=== PATIENT | male | born 1960 | race Caucasian/White ===

== ENCOUNTER 2024-04-05 13:12 | Inpatient (IN) | payer MEDICARE, OTHER ==
[~2024-04-05] VITALS: Ht 180.3 cm; Wt 78.0 kg
--- NOTE | 2024-04-05 13:30 | ED.PDOC ---
History of Present Illness HPI Comments 64 y.o male presents to the ED via EMS for a chief complaint of flu like symptoms that include generalized weakness, body aches and chills that started around 03/25/24. Patient drove from [place] to [place] to visit family for the holidays, developed flu like symptoms on the way which have gotten progressively worse. Patient presents with strong presence of urine odor, denies any urinary symptoms. EMS reports patient was non ambulatory on scene and was carried onto the gurney. Patient is usually ambulatory but due to his weakness, he has been laying in bed since he arrived to his family house. Patient denies any nausea, vomiting, abdominal pain, chest pain SOB, fevers. Patient is afebrile, blood pressure of 136/72 and tachycardiac at 120. Time Seen by MD: 13:20 Reviewed Notes: Nurses Notes, Sales And Marketing Agent Notes, Medications, Allergies Information Source: Patient, Emergency Med Personnel Mode of Arrival: EMS Severity: Moderate Timing: Weeks Duration: Since onset Past Medical History Surgical History: CABG Surgical History (Other): facial reconstruction Family History Family History: Reviewed,noncontributory to illness, No family hx of Cancer, No family hx of DM, No family hx of Heart yaz, No family hx of HTN, No family hx ofKidney yaz, No family hx of Liver yaz, No family hx of Lung yaz, No family hx of Stroke Social History Smoker: Non-Smoker Alcohol: Denies ETOH Use Drugs: Denies Drug Use Lives In: Home Constitutional: reports: chills, weakness; denies: diaphoresis, fatigue, fever, malaise, sweats, others EENTM: denies: blurred vision, double vision, ear bleeding, ear discharge, ear drainage, ear pain, ear ringing, eye pain, eye redness, hearing loss, mouth pain, mouth swelling, nasal discharge, nose bleeding, nose congestion, nose pain, photophobia, tearing, throat pain, throat swelling, voice changes, others Respiratory: denies: cough, hemoptysis, orthopnea, SOB at rest, shortness of breath, SOB with excertion, stridor, wheezing, others Cardiovascular: denies: chest pain, dizzy spells, diaphoresis, Dyspnea on exertion, edema, irregular heart beat, left arm pain, lightheadedness, palpitations, PND, syncope, others Gastrointestinal: denies: abdomen distended, abdominal pain, blood streaked bowels, constipated, diarrhea, dysphagia, difficulty swallowing, hematemesis, melena, nausea, poor appetite, poor fluid intake, rectal bleeding, rectal pain, vomiting, others Genitourinary: denies: burning, dysuria, flank pain, frequency, hematuria, in continence, penile discharge, penile sore, pain, testicle pain, testicle swelling, urgency, others Neurological: denies: dizziness, fainting, headache, left sided numbness, left sided weakness, numbness, paresthesia, pre-existing deficit, right sided numbness, right sided weakness, seizure, speech problems, tingling, tremors, weakness, others Musculoskeletal: denies: back pain, gout, joint pain, joint swelling, muscle pain, muscle stiffness, neck pain, others Integumetry: denies: bruises, change in color, change in hair/nails, dryness, laceration, lesions, lumps, rash, wounds, others Allergic/Immunocompromised: denies: Difficulty Healing, Frequent Infections, Hives, Itching, others Hematologic/Lymphatic: denies: anemia, blood clots, easy bleeding, easy bruising, swollen glands, others Endocrine: denies: excessive hunger, excessive sweating, excessive thirst, excessive urination, flushing, intolerance to cold, intolerance to heat, unexplained weight gain, unexplained weight loss, others Psychiatric: denies: anxiety, bipolar disorder, depression, hopeless, panic disorder, schizophrenia, sleepless, suicidal, others All Other Systems: Reviewed and Negative Physical Exam General Appearance: Moderate Distress HEENT: Normal ENT Inspection, Pharynx Normal, TMs Normal Neck: Full Range of Motion, Non-Tender, Normal, Normal Inspection Respiratory: Chest Non-Tender, Lungs Clear, No Accessory Muscle Use, No Respiratory Distress, Normal Breath Sounds Cardiovascular: No Edema, No JVD, No Murmur, No Gallop, Normal Peripheral Pulses, Regular Rate/Rhythm Breast Exam: Deferred Gastrointestinal: No Organomegaly, Non Tender, No Pulsatile Mass, Normal Bowel Sounds, Soft Genitalia: Deferred Pelvic: Deferred Rectal: Deferred Extremities: No calf tenderness, Normal capillary refill, Normal inspection, Normal range of motion, Non-tender, No pedal edema Musculoskeletal : Apperance: Normal Neurologic: Alert, No Motor Deficits, No Sensory Deficits Cerebellar Function: NOT DONE Reflexes: NOT DONE Skin: Pallor Peripheral Pulses: 3+ Radial (R), 3+ Radial (L) Lymphatic: No Adenopathy Was a procedure done? Was a procedure done?: No Differential Dx Considerations may include: Dehydration, Electrolyte imbalance, Influenza, URI, Sepsis, UTI X-Ray, Labs, Meds, VS Lab Test 04/05/24 13:33 Range/Units White Blood Count 4.0 L 4.4-10.8 10^3/uL Red Blood Count 4.40 L 4.5-5.90 10^6/uL Hemoglobin 13.7 13.5-17.5 g/dL Hematocrit 40.4 L 41.0-53.0 % Mean Corpuscular Volume 91.8 80.0-100.0 fL Mean Corpuscular Hemoglobin 31.0 28.0-32.0 pg Mean Corpuscular Hemoglobin Concent 33.8 32.0-36.0 g/dL Red Cell Distribution Width 14.2 11.8-14.3 % Platelet Count 79 L 140-450 10^3/uL Mean Platelet Volume 9.6 6.9-10.8 fL Neutrophils (%) (Auto) 37.0-80.0 % Lymphocytes (%) (Auto) 10.0-50.0 % Monocytes (%) (Auto) 0.0-12.0 % Basophils (%) (Auto) 0.0-2.0 % Neutrophils # (Auto) 1.6-8.6 10 ^3/uL Lymphocytes # (Auto) 0.4-5.4 10 ^3/uL Monocytes # (Auto) 0-1.3 10 ^3/uL Differential Total Cells Counted 100.0 100 Neutrophils % (Manual) 84 H 37.0-80.0 Band Neutrophils % (Manual) 5 Lymphocytes % (Manual) 5 L 10.0-50.0 Monocytes % (Manual) 6 0-12 Eosinophils % (Manual) 0 0-7 Basophils % (Manual) 0 0.0-2.0 Metamyelocytes % (manual) 0 Myelocytes % (Manual) 0 Promyelocytes % (Manual) 0 Blast Cells % (Manual) 0 Reactive Lymphocytes 0 Platelet Estimate Decreased Large Platelets Few Sodium Level 138 136-145 mmol/L Potassium Level 4.8 3.5-5.1 mmol/L Chloride Level 104 98-107 mmol/L Carbon Dioxide Level 21 20-31 mmol/L Anion Gap 13 5-15 Blood Urea Nitrogen 61 H 9-23 mg/dL Creatinine 3.60 H 0.700-1.30 mg/dL Glomerular Filtration Rate Calc 18 >90 mL/min BUN/Creatinine Ratio 16.9 10.0-20.0 Serum Glucose 126 H 74-106 mg/dL Calcium Level 10.0 8.7-10.4 mg/dL Troponin I High Sensitivity 22 </=54 ng/L Patient alert. Generalized weakness. Has been sick for more than a week. Vitals stable. Tachycardia. Has not been ambulating. Denies shortness a breath. Chronic pain syndrome. He is on continuous pain medication. Establish intravenous access. Was given fluids. Reviewed his history. Explained to the patient. Time of 1ST Reevaluation: 13:25 Reevaluation 1ST: Unchanged Patient Education/Counseling: Diagnosis, Treatment, Prognosis Family Education/Counseling: No Family Present Additional Information I reviewed the following notes from patient's past medical encounters: None The following tests were ordered, and results were reviewed by me: KRISTOPHER, Nicola, LAB Additional Information was gathered from interviewing the following independent historians: Paramedics I reviewed and agreed with the following test results read by other providers: I discussed treatment and results with medical personnel Departure 1 Departure Time of Disposition: 13:32 Impression: Primary Impression: Generalized weakness Disposition: ADMITTED INPATIENT Admit to: Med Surg Condition: Guarded Critical Care Note Critical Care Time?: No Stability Stability form required: No I personally scribed for CATARINO GARCIA MD ([email or web address]) on 04/05/24 at 13:30. Electronically submitted by Rosa Turner ([facility]). CATARINO GARCIA MD Apr 05, 2024 13:30
[2024-04-05 14:05] LABS: Hematocrit 40.4 % (41.0-53.0); Hemoglobin 13.7 g/dL (13.5-17.5); Mean Corpuscular Hgb Conc. 33.8 g/dL (32.0-36.0); Mean Corpuscular Volume 91.8 fL (80.0-100.0); Platelet Count (auto) 79 10^3/uL (140-450); Red Cell Distribution Width 14.2 % (11.8-14.3)
[2024-04-05 14:08] LABS: Basophils % (manual) 0 (0.0-2.0); Blast Cells 0; Eosinophils % (manual) 0 (0-7); Metamyelocytes % 0; Myelocytes % 0; Promyelocytes % 0; Reactive Lymphocytes 0
[2024-04-05 14:09] LABS: Chloride 104 mmol/L (98-107); Potassium 4.8 mmol/L (3.5-5.1); Sodium 138 mmol/L (136-145)
[2024-04-05 14:10] LABS: Anion Gap 13 (5-15); Carbon Dioxide 21 mmol/L (20-31)
[2024-04-05 14:15] LABS: BUN/Creatinine Ratio 16.9 (10.0-20.0)
[2024-04-05 14:18] LABS: Blood Urea Nitrogen 61 mg/dL (9-23); Glucose 126 mg/dL (74-106)
[2024-04-05 14:29] LABS: Band Neutrophils % (manual) 5; Large Platelets FEW; Lymphocytes % (manual) 5 (10.0-50.0); Monocytes % (manual) 6 (0-12); Platelet Estimate Decreased
[2024-04-05] MEDS: NALOXONE HCL 1MG/ML 2ML SYRINGE IV ONE (16:22)
[2024-04-05] MEDS: cefTRIAXone 1GM/50ML D5W 50 ML IV ONE (16:23)
[2024-04-05] MEDS: SODIUM CHLORIDE 0.9% 1,000 ML IV ONE ×2 (16:24→20:24)
--- NOTE | 2024-04-05 16:59 | DVH ---
XY CHEST PORTABLE, HISTORY: SOB COMPARISON: None None TECHNICAL DATA: 1 view of the chest was obtained. FINDINGS: Lines and tubes: None Cardiomediastinal silhouette: normal Pulmonary vasculature: Prominent Lung expansion: low Lung airspace: normal Lung interstitium: prominent Pleura: normal Pneumothorax: no Bones: Unremarkable Other: no IMPRESSION: Pulmonary vascular congestion.
[2024-04-05 17:25] LABS: COVID19 ANTIGEN SOFIA FIA NEGATIVE (NEGATIVE); Rapid Influenza A Negative (Negative); Rapid Influenza B Negative (Negative)
[2024-04-05] MEDS: HYDROcodone-ACET 5/325MG TAB PO ONE (20:48)
[2024-04-05] MEDS ORDERED: DOCUSATE SOD 100 MG CAP PO PRN (21:30)
[2024-04-05] MEDS ORDERED: DEXTROSE (50%) 50ML SYRG IV PRN (21:30)
[2024-04-05] MEDS ORDERED: ACETAMINOPHEN 325 MG TAB PO PRN (21:30)
[2024-04-05 21:34] LABS: Urine Bacteria FEW /hpf (None Seen); Urine Blood 2+ /uL (Negative); Urine Clarity Clear (Clear); Urine Color Yellow (Yellow); Urine Hyaline Cast FEW /lpf (0 - 2); Urine Protein, UAD 1+ (Negative); Urine Specific Gravity 1.021 (1.001-1.035); Urine Squamous Epithelial Cell FEW /hpf (<5); Urine Urobilinogen Normal (Negative); Urine WBC 18 /hpf (0 - 3); Urine pH 5.5 (5.0-9.0)
[2024-04-05] MEDS: InsuLIN REG 1unit/0.01ml Soln (100units/ml) SC SCH (22:00)
[2024-04-05] MEDS: ACCU-CHEK COMFORT CURVE STRIP VI SCH (22:14)
[2024-04-05] MEDS: ATORVASTATIN 20 MG TAB PO SCH (22:23)
--- NOTE | 2024-04-05 22:56 | DVHHP2 ---
History of Present Illness Reason for Visit: Generalized weakness History of Present Illness The patient is a 64-year-old female with past medical history of diabetes mellitus, hypertension, and hyperlipidemia who presented to [facility] ED with complaint of generalized weakness. Patient reports symptoms progressively get worse with flu-like symptoms, getting worse that prompted this visit. Patient was seen and evaluated in the ED, laboratory data shows WBC 4.0, platelets 39053, sodium 138, potassium 4.8, BUN 61, creatinine 3.60, GFR 61, glucose 126, troponin 22, blood pressure 152/66, heart rate 108, temperature 98.8 F, O2 saturation 95% on room air. Chest x-ray revealing pulmonary vascular congestion. Please see medication orders section in the computer. On my assessment, patient denied chest pain, no headache, no dizziness, no shortness of breath, no abdominal pain, no diarrhea, no nausea, no vomiting, no fever, no chills. Patient was admitted for further evaluation and medical management. Past Medical History DM, hypertension, hyperlipidemia Past Surgical History CABG, Facial reconstruction Family History Reviewed, noncontributory to the management of this case. Past Social History The patient lives at home, denies smoking, alcohol or illicit drugs abuse. Review of Systems Constitutional: Yes: Weakness; No: Fever, Chills, Sweats, Malaise, Other Eyes: No: Pain, Vision change, Conjunctivae inflammation, Eyelid inflammation, Other, Redness ENT: No: Ear pain, Ear discharge, Nose pain, Nose discharge, Nose congestion, Mouth pain, Mouth swelling, Throat pain, Throat swelling, Other Respiratory: No: Cough, Dry, Shortness of breath, SOB with excertion, Wheezing, Hemoptysis, Pleuritic Pain, Sputum, Wheezing, Other Cardiovascular: No: Chest Pain, Palpitations, Orthopnea, Paroxysmal Noc. Dyspnea, Edema, Lt Headedness, Other Gastrointestinal: No: Nausea, Vomiting, Abdominal Pain, Diarrhea, Constipation, Melena, Hematochezia, Other Genitourinary: No Dysuria, No Frequency, No Incontinence, No Hematuria, No Retention, No Other Musculoskeletal: No: other, neck pain, shoulder pain, arm pain, back pain, hand pain, leg pain, foot pain Skin: No: Rash, Lesions, Jaundice, Bruising, Other Neurological: No: Weakness, Numbness, Incoordination, Change in speech, Confusion, Seizures, Other Allergies: Coded Allergies: NO KNOWN ALLERGIES (Unverified , 04/05/24) Medications Current Medications Medications Dose Ordered Sig/Gertrude Route Start Time Stop Time Status Last Admin Dose Admin Diagnostic Test (Pha) 1 strip ACHS 04/05/24 22:00 04/05/24 22:14 1 STRIP Insulin Human Regular ACHS SC 04/05/24 22:00 Dextrose 50 ml UD PRN IV 04/05/24 21:30 Acetaminophen/ Hydrocodone Bitart 1 tab Q4HP PRN PO 04/05/24 21:30 Ondansetron HCl 4 mg Q4HP PRN IV 04/05/24 21:30 Docusate Sodium 100 mg BIDPRN PRN PO 04/05/24 21:30 Acetaminophen 650 mg Q6HP PRN PO 04/05/24 21:30 Atorvastatin Calcium 10 mg HS PO 04/05/24 22:00 04/05/24 22:23 10 MG Aspirin 81 mg DAILY PO 04/06/24 10:00 Exam Vital Signs Vital Signs Date Time Temp Pulse Resp B/P (MAP) Pulse Ox O2 Delivery O2 Flow Rate FiO2 04/05/24 20:01 108 22 152/66 (94) 95 04/05/24 18:27 98.8 98.8 General Appearance: Alert, Oriented X3, Cooperative, No acute distress HEENT: Atraumatic, PERRLA, EOMI, Mucous membr. moist/pink Respiratory: Clear to auscultation, Normal air movement Cardiovascular: Regular rate, Normal S1, Normal S2, No murmurs Abdominal: Normal bowel sounds, Soft, No tenderness, No hepatospenomegaly, No masses Extremities: No clubbing, No cyanosis, No edema, Normal pulses, No tenderness/swelling Skin: No rashes, No breakdown, No significant lesion Neuro: Normal speech, Normal tone, Sensation intact, Cranial nerves 3-12 NL, Reflexes 2+, Other (Generalized weakness) Psych/Mental Status: Mental status NL, Mood NL Labs/Xrays Labs Test 04/05/24 20:20 04/05/24 16:33 04/05/24 13:33 Range/Units Urine Color Yellow Yellow Urine Clarity Clear Clear Urine pH 5.5 5.0-9.0 Urine Specific [place] 1.021 1.001-1.035 Urine Protein 1+ H Negative Urine Ketones Trace Negative Urine Blood 2+ H Negative /uL Urine Nitrite Negative Negative Urine Bilirubin Negative Negative Urine Urobilinogen Normal Negative mg/dL Urine Leukocyte Esterase 2+ Negative /uL Urine RBC 2 0 - 3 /hpf Urine WBC 18 0 - 3 /hpf Urine Squamous Epithelial Cells Few <5 /hpf Urine Bacteria Few H None Seen /hpf Urine Hyaline Casts Few 0 - 2 /lpf Urine Glucose Normal Normal mg/dL Influenza Type A Antigen Negative Negative Influenza Type B Antigen Negative Negative SARS-CoV-2 Antigen (Rapid) Negative NEGATIVE White Blood Count 4.0 L 4.4-10.8 10^3/uL Red Blood Count 4.40 L 4.5-5.90 10^6/uL Hemoglobin 13.7 13.5-17.5 g/dL Hematocrit 40.4 L 41.0-53.0 % Mean Corpuscular Volume 91.8 80.0-100.0 fL Mean Corpuscular Hemoglobin 31.0 28.0-32.0 pg Mean Corpuscular Hemoglobin Concent 33.8 32.0-36.0 g/dL Red Cell Distribution Width 14.2 11.8-14.3 % Platelet Count 79 L 140-450 10^3/uL Mean Platelet Volume 9.6 6.9-10.8 fL Neutrophils (%) (Auto) 37.0-80.0 % Lymphocytes (%) (Auto) 10.0-50.0 % Monocytes (%) (Auto) 0.0-12.0 % Basophils (%) (Auto) 0.0-2.0 % Neutrophils # (Auto) 1.6-8.6 10 ^3/uL Lymphocytes # (Auto) 0.4-5.4 10 ^3/uL Monocytes # (Auto) 0-1.3 10 ^3/uL Differential Total Cells Counted 100.0 100 Neutrophils % (Manual) 84 H 37.0-80.0 Band Neutrophils % (Manual) 5 Lymphocytes % (Manual) 5 L 10.0-50.0 Monocytes % (Manual) 6 0-12 Eosinophils % (Manual) 0 0-7 Basophils % (Manual) 0 0.0-2.0 Metamyelocytes % (manual) 0 Myelocytes % (Manual) 0 Promyelocytes % (Manual) 0 Blast Cells % (Manual) 0 Reactive Lymphocytes 0 Platelet Estimate Decreased Large Platelets Few Sodium Level 138 136-145 mmol/L Potassium Level 4.8 3.5-5.1 mmol/L Chloride Level 104 98-107 mmol/L Carbon Dioxide Level 21 20-31 mmol/L Anion Gap 13 5-15 Blood Urea Nitrogen 61 H 9-23 mg/dL Creatinine 3.60 H 0.700-1.30 mg/dL Glomerular Filtration Rate Calc 18 >90 mL/min BUN/Creatinine Ratio 16.9 10.0-20.0 Serum Glucose 126 H 74-106 mg/dL Calcium Level 10.0 8.7-10.4 mg/dL Troponin I High Sensitivity 22 </=54 ng/L PATIENT: NINI FLETCHER ACCT: [id number] UNIT: [id number] : 1960 LOC: ER ROOM / BED: / AGE / SEX: 64 / M ADM STATUS: REG ER SERVICE [id number] ORDERING PHYSICIAN: CATARINO GARCIA MD PROCEDURE(s): CXRP - CHEST PORTABLE REASON: SOB ORDER NUMBER(s): [id number], ACCESSION NUMBER(s): [id number] XY CHEST PORTABLE, HISTORY: SOB COMPARISON: None None TECHNICAL DATA: 1 view of the chest was obtained. FINDINGS: Lines and tubes: None Cardiomediastinal silhouette: normal Pulmonary vasculature: Prominent Lung expansion: low Lung airspace: normal Lung interstitium: prominent Pleura: normal Pneumothorax: no Bones: Unremarkable Other: no IMPRESSION: Pulmonary vascular congestion. Assessment/Plan Assessment/Plan Generalized weakness Thrombocytopenia Acute renal failure Pulmonary vascular congestion Plan 1. Admit to telemetry unit 2. Breathing treatment 3. Pain control management 4. IV antibiotic management 5. Management of fluids and electrolytes 6. Consultation for Nephrology 7. Diagnostic test chest x-ray 8. DVT prophylaxis-on aspirin 9. Repeat labs CBC, CMP in a.m. 10. Home medication reviewed and reconciled 11. Continue with current medical management 12. Treatment plan discussed with patient and RN. Patient verbalized understanding. Plan discussed with: Patient, Other (RN) My Orders Orders - ROSE RENEE DNP Procedure Category Date Status Time *Dr. Raymond Somers CONS 04/05/24 Transmitted -[place] 21:18 Consistent DIET 04/06/24 Transmitted Carb(Ccho)Diabetes Breakfast Glucose Blood PHA 04/05/24 In Process (Accu-Chek Comfort 22:00 Insulin R (Human) PHA 04/05/24 In Process (Insulin R) 22:00 Dextrose 50% Syringe PHA 04/05/24 In Process 21:30 Allergies CEDRIC 04/05/24 In Process 21:18 Code Status CODE 04/05/24 Transmitted 21:18 Renal DIET 04/06/24 Transmitted Standard(2gna,3gk,Lopho) Breakfast Oxygen Per Hour RT 04/05/24 Transmitted 21:18 Hydrocodone-Acet PHA 04/05/24 In Process 5/325mg Tab ([place] 21:30 Ondansetron Hcl PHA 04/05/24 In Process (Zofran) 21:30 Docusate Sodium PHA 04/05/24 In Process Capsule (Colace 21:30 Complete Blood Count LAB 04/06/24 Verified 04:00 Comprehensive LAB 04/06/24 Verified Metabolic Panel 04:00 Condition: Serious CEDRIC 04/05/24 In Process 21:18 Acetaminophen Tablet PHA 04/05/24 In Process (Tylenol Tablet) 21:30 Bedrest With Bathroom CEDRIC 04/05/24 In Process Privileg 21:18 Sequential CEDRIC 04/05/24 In Process Compression Device Atorvastatin (Lipitor) PHA 04/05/24 In Process 22:00 Aspirin Tablet PHA 04/06/24 In Process 10:00 Problem List: (1) Generalized weakness (2) Thrombocytopenia (3) Acute renal failure (4) Pulmonary vascular congestion Date of Service: Apr 05, 2024 Billing Provider: ROSE RENEE DNP Common Visit Codes: [id number] INP/OBS CARE (HIGH) ROSE RENEE DNP Apr 05, 2024 22:56
[2024-04-05] MEDS ORDERED: NITROGLYCERIN 0.4 MG SL TAB SL PRN (23:00)
[2024-04-06] MEDS: HYDROcodone-ACET 5/325MG TAB PO PRN (03:56)
[2024-04-06 08:44] LABS: Hematocrit 40.2 % (41.0-53.0); Mean Corpuscular Hemoglobin 30.7 pg (28.0-32.0); Mean Corpuscular Hgb Conc. 32.4 g/dL (32.0-36.0); Mean Corpuscular Volume 94.8 fL (80.0-100.0); Platelet Count (auto) 42 10^3/uL (140-450); Red Blood Cells 4.24 10^6/uL (4.5-5.90); Red Cell Distribution Width 14.7 % (11.8-14.3); White Blood Cell 9.3 10^3/uL (4.4-10.8)
[2024-04-06 08:46] LABS: Basophils % (manual) 0 (0.0-2.0); Blast Cells 0; Eosinophils % (manual) 0 (0-7); Metamyelocytes % 0; Myelocytes % 0; Promyelocytes % 0; Reactive Lymphocytes 0
[2024-04-06 09:01] LABS: Alanine Aminotransferase 14 U/L (7-40); Albumin 3.4 g/dL (3.2-4.8); Alkaline Phosphatase 64 U/L (46-116); Anion Gap 9 (5-15); Aspartate Aminotransferase 34 U/L (13-40); BUN/Creatinine Ratio 16.4 (10.0-20.0); Calcium 9.7 mg/dL (8.7-10.4); Glucose 106 mg/dL (74-106); Potassium 4.3 mmol/L (3.5-5.1)
[2024-04-06 09:02] LABS: Bilirubin, Total 0.4 mg/dL (0.2-1.0); Total Protein 6.2 g/dL (5.7-8.2)
[2024-04-06 09:04] LABS: Blood Urea Nitrogen 49 mg/dL (9-23); Carbon Dioxide 18 mmol/L (20-31); Chloride 108 mmol/L (98-107); Sodium 135 mmol/L (136-145)
[2024-04-06] MEDS: ASPirin 81 mg TAB PO SCH (09:40)
[2024-04-06] MEDS: cefTRIAXone 1GM/50ML D5W 50 ML IV SCH (09:51)
--- NOTE | 2024-04-06 10:46 | DVHINCON2 ---
Date of service: Apr 06, 2024 Reason for Consultation Acute kidney injury History of Present Illness 64-year-old male no known previous medical history [place] that he has had flu-like symptoms for last several days. He presents to the hospital complaining of weakness. He is noted to have a creatinine greater than 3.0 on admission. No baseline is known. Nephrology consulted due to elevated creatinine level. Allergies: Coded Allergies: NO KNOWN ALLERGIES (Unverified , 04/05/24) Current Medications Current Medications Medications (Trade) Dose Ordered Sig/Gertrude Route PRN Reason Start Time Stop Time Status Last Admin Diagnostic Test (Pha) (Accu-Chek Comfort Curve T) 1 strip ACHS 04/05/24 22:00 04/06/24 09:35 Insulin Human Regular (InsuLIN R) ACHS SC 04/05/24 22:00 Dextrose 50 ml UD PRN IV Blood Sugar LESS THAN 60 04/05/24 21:30 Acetaminophen/ Hydrocodone Bitart ([place] 5/325MG Tab) 1 tab Q4HP PRN PO MODERATE PAIN (4-6 PAIN SCALE) 04/05/24 21:30 04/06/24 08:57 Ondansetron HCl (Zofran) 4 mg Q4HP PRN IV NAUSEA / VOMITING 04/05/24 21:30 Docusate Sodium (Colace Capsule) 100 mg BIDPRN PRN PO FOR CONSTIPATION 04/05/24 21:30 Acetaminophen (Tylenol Tablet) 650 mg Q6HP PRN PO PAIN SCALE 1-3 OR TEMP>100.4 04/05/24 21:30 Atorvastatin Calcium (Lipitor) 10 mg HS PO 04/05/24 22:00 04/05/24 22:23 Aspirin 81 mg DAILY PO 04/06/24 10:00 Nitroglycerin (Ntrostat Sublingual) 0.4 mg Q5MINP PRN SL FOR CHEST PAIN 04/05/24 23:00 Morphine Sulfate 2 mg Q30M PRN IV FOR CHEST PAIN 04/05/24 23:00 Ceftriaxone Sodium 50 ml @ 100 mls/hr DAILY@09 IV 04/06/24 09:00 04/06/24 09:51 Review of Systems Weakness and chills cough shortness of breath H&P Exam Vital Signs/I&O Vital Sign Date Time Temp Pulse Resp B/P (MAP) Pulse Ox O2 Delivery O2 Flow Rate FiO2 04/06/24 09:55 94 16 100/54 (69) 93 04/05/24 18:27 98.8 98.8 Intake and Output 04/05/24 04/06/24 19:00 07:00 Intake Total 1050 ml Balance 1050 ml Intake IV Total 1050 ml Physical Exam Elderly male disheveled Not in overt distress No pitting edema Mild congestion Labs/Diagnostic Data Labs/Diagnostic Data Laboratory Tests Test 04/06/24 09:53 04/06/24 08:36 04/05/24 20:20 04/05/24 16:33 Range/Units White Blood Count 9.3 # 4.4-10.8 10^3/uL Red Blood Count 4.24 L 4.5-5.90 10^6/uL Hemoglobin 13.0 L 13.5-17.5 g/dL Hematocrit 40.2 L 41.0-53.0 % Mean Corpuscular Volume 94.8 80.0-100.0 fL Mean Corpuscular Hemoglobin 30.7 28.0-32.0 pg Mean Corpuscular Hemoglobin Concent 32.4 32.0-36.0 g/dL Red Cell Distribution Width 14.7 H 11.8-14.3 % Platelet Count 42 L 140-450 10^3/uL Mean Platelet Volume 9.2 6.9-10.8 fL Neutrophils (%) (Auto) 37.0-80.0 % Lymphocytes (%) (Auto) 10.0-50.0 % Monocytes (%) (Auto) 0.0-12.0 % Basophils (%) (Auto) 0.0-2.0 % Neutrophils # (Auto) 1.6-8.6 10 ^3/uL Lymphocytes # (Auto) 0.4-5.4 10 ^3/uL Monocytes # (Auto) 0-1.3 10 ^3/uL Sodium Level 135 L 136-145 mmol/L Potassium Level 4.3 3.5-5.1 mmol/L Chloride Level 108 H 98-107 mmol/L Carbon Dioxide Level 18 L 20-31 mmol/L Anion Gap 9 5-15 Blood Urea Nitrogen 49 #H 9-23 mg/dL Creatinine 2.99 H 0.700-1.30 mg/dL Glomerular Filtration Rate Calc 23 >90 mL/min BUN/Creatinine Ratio 16.4 10.0-20.0 Serum Glucose 106 74-106 mg/dL Calcium Level 9.7 8.7-10.4 mg/dL Total Bilirubin 0.4 0.2-1.0 mg/dL Aspartate Amino Transferase (AST) 34 13-40 U/L Alanine Aminotransferase (ALT) 14 7-40 U/L Alkaline Phosphatase 64 46-116 U/L Total Protein 6.2 5.7-8.2 g/dL Albumin 3.4 3.2-4.8 g/dL Urine Color Yellow Yellow Urine Clarity Clear Clear Urine pH 5.5 5.0-9.0 Urine Specific [place] 1.021 1.001-1.035 Urine Protein 1+ H Negative Urine Ketones Trace Negative Urine Blood 2+ H Negative /uL Urine Nitrite Negative Negative Urine Bilirubin Negative Negative Urine Urobilinogen Normal Negative mg/dL Urine Leukocyte Esterase 2+ Negative /uL Urine RBC 2 0 - 3 /hpf Urine WBC 18 0 - 3 /hpf Urine Squamous Epithelial Cells Few <5 /hpf Urine Bacteria Few H None Seen /hpf Urine Hyaline Casts Few 0 - 2 /lpf Urine Glucose Normal Normal mg/dL Influenza Type A Antigen Negative Negative Influenza Type B Antigen Negative Negative SARS-CoV-2 Antigen (Rapid) Negative NEGATIVE Test 04/05/24 13:33 Range/Units White Blood Count 4.0 L 4.4-10.8 10^3/uL Red Blood Count 4.40 L 4.5-5.90 10^6/uL Hemoglobin 13.7 13.5-17.5 g/dL Hematocrit 40.4 L 41.0-53.0 % Mean Corpuscular Volume 91.8 80.0-100.0 fL Mean Corpuscular Hemoglobin 31.0 28.0-32.0 pg Mean Corpuscular Hemoglobin Concent 33.8 32.0-36.0 g/dL Red Cell Distribution Width 14.2 11.8-14.3 % Platelet Count 79 L 140-450 10^3/uL Mean Platelet Volume 9.6 6.9-10.8 fL Neutrophils (%) (Auto) 37.0-80.0 % Lymphocytes (%) (Auto) 10.0-50.0 % Monocytes (%) (Auto) 0.0-12.0 % Basophils (%) (Auto) 0.0-2.0 % Neutrophils # (Auto) 1.6-8.6 10 ^3/uL Lymphocytes # (Auto) 0.4-5.4 10 ^3/uL Monocytes # (Auto) 0-1.3 10 ^3/uL Differential Total Cells Counted 100.0 100 Neutrophils % (Manual) 84 H 37.0-80.0 Band Neutrophils % (Manual) 5 Lymphocytes % (Manual) 5 L 10.0-50.0 Monocytes % (Manual) 6 0-12 Eosinophils % (Manual) 0 0-7 Basophils % (Manual) 0 0.0-2.0 Metamyelocytes % (manual) 0 Myelocytes % (Manual) 0 Promyelocytes % (Manual) 0 Blast Cells % (Manual) 0 Reactive Lymphocytes 0 Platelet Estimate Decreased Large Platelets Few Sodium Level 138 136-145 mmol/L Potassium Level 4.8 3.5-5.1 mmol/L Chloride Level 104 98-107 mmol/L Carbon Dioxide Level 21 20-31 mmol/L Anion Gap 13 5-15 Blood Urea Nitrogen 61 H 9-23 mg/dL Creatinine 3.60 H 0.700-1.30 mg/dL Glomerular Filtration Rate Calc 18 >90 mL/min BUN/Creatinine Ratio 16.9 10.0-20.0 Serum Glucose 126 H 74-106 mg/dL Calcium Level 10.0 8.7-10.4 mg/dL Troponin I High Sensitivity 22 </=54 ng/L Assessment Acute kidney injury hemodynamically mediated Suspect chronic kidney disease however baseline is unknown Viral infection suspect [place] pneumonia Rule out urinary tract infection Proteinuria Status post IV fluid hydration Agree with antibiotic therapy to treat potential community-acquired pneumonia Obtain urine drug screen Urinalysis Obtain ultrasound of the kidney for baseline evaluation Avoid contrast studies Avoid nonsteroidal anti-inflammatory drugs Plan discussed with: Patient KERON BROWN MD Apr 06, 2024 10:46
[2024-04-06 10:57] LABS: Band Neutrophils % (manual) 6; Lymphocytes % (manual) 9 (10.0-50.0); Monocytes % (manual) 7 (0-12); Platelet Estimate Decreased
--- NOTE | 2024-04-06 11:46 | DVH ---
US KIDNEY HISTORY: dylan COMPARISON: None TECHNIQUE: Transverse and longitudinal grayscale and color doppler images were obtained of the kidney s and bladder. FINDINGS: Right kidney: Size: 11.1 cm Cortical thickness: Normal Echogenicity: Normal Stones: None Masses: None Hydronephrosis: None Ureters: Not well visualized. Other: None Left kidney: Size: 11.7 cm Cortical thickness: Normal Echogenicity: Normal Stones: None Masses: None Hydronephrosis: None Ureters: Not well visualized. Other: None Bladder: Normal Other: None. IMPRESSION: Normal renal ultrasound.
--- NOTE | 2024-04-06 20:39 | DVH ---
Exam: CT CT AB PEL WO CON-NO ORAL OR IV History: abdominal pain Comparison Study: None available at time of dictation. TECHNIQUE: Multidetector CT of the abdomen was performed from lung bases to pubic symphysis. Imaging was performed without IV contrast. Axial, coronal and sagittal multiplanar reformats were obtained fr om the axial data set by the technologist. Radiation Dose Information: CT Dose: CTDI volume is 13.17 mGy. Dose-length product is 747.79 mGy*cm FINDINGS: Evaluation of solid organs is limited due to lack of intravenous contrast use. Findings: Lung Bases: Atelectasis in the posterior costophrenic angles bilaterally. Liver: The liver is normal in size. No focal lesions. Gallbladder and Biliary Tree: Gallstones in the posterior portion of the neck of the gallbladder ( se qiana 2 image 30 ) Spleen: Unremarkable Pancreas: The pancreas is grossly normal in appearance. Adrenal Glands: Unremarkable Kidneys: Punctate nonobstructing calculi bilaterally in the kidneys these may represent vascular calc ever. Bladder: Grossly unremarkable for degree of distention. Bowel: The stomach is grossly normal in appearance. Small bowel and colon are normal in caliber and d istribution. The appendix is visualized and appears normal. Ascites: Absent Lymphadenopathy: No mesenteric, retroperitoneal or periportal lymphadenopathy. Abdominal Wall and Mesentery: Unremarkable. Vasculature: The visualized abdominal aorta is normal in size and caliber. Evaluation of abdominal a nd pelvic vessels is limited due to lack of intravenous contrast. Pelvic Organs: Unremarkable Musculoskeletal: No aggressive focal bony lesions, acute fractures or dislocation. Soft tissues: Unremarkable IMPRESSION: 1. Cholelithiasis 2. No findings of bowel obstruction however there is a large stool burden throughout the colon. 3. Punctate nonobstructing renal calculi bilaterally these may be urinary or vascular calculi. Radiation optimization: All CT scans at this facility use at least one of these dose optimization kimberly hniques: automated exposure control mA and/or kV adjustment per patient size (includes targeted exam s where dose is matched to clinical indication) or iterative reconstruction. HS:Y
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
[2024-04-06] MEDS: AZITHROMYCIN 500MG/ 250ML 250 ML IV ONE (20:45)
[2024-04-07 00:59] VITALS: RESP 19; O2SAT 94
[2024-04-07 07:30] VITALS: PULSE 102; RESP 18; O2SAT 94
[2024-04-07 07:38] LABS: Anion Gap 10 (5-15); Potassium 3.9 mmol/L (3.5-5.1); Sodium 137 mmol/L (136-145)
[2024-04-07 07:39] LABS: Calcium 9.9 mg/dL (8.7-10.4)
[2024-04-07 07:44] LABS: BUN/Creatinine Ratio 26.3 (10.0-20.0)
[2024-04-07 07:48] LABS: Glucose 102 mg/dL (74-106)
[2024-04-07 07:49] LABS: Blood Urea Nitrogen 63 mg/dL (9-23); Carbon Dioxide 19 mmol/L (20-31); Chloride 108 mmol/L (98-107)
[2024-04-07 08:40] LABS: Basophils # (auto) 0 10 ^3/uL (0-0.2); Basophils % (auto) 0.3 % (0.0-2.0); Eosinophils # (auto) 0.2 10 ^3/uL (0-0.8); Eosinophils % (auto) 2.4 % (0.0-7.0); Hematocrit 37.7 % (41.0-53.0); Hemoglobin 12.9 g/dL (13.5-17.5); Lymphocytes # (auto) 0.4 10 ^3/uL (0.4-5.4); Mean Corpuscular Hemoglobin 31.1 pg (28.0-32.0); Mean Corpuscular Hgb Conc. 34.1 g/dL (32.0-36.0); Mean Corpuscular Volume 91.1 fL (80.0-100.0); Monocytes # (auto) 0.2 10 ^3/uL (0-1.3); Monocytes % (auto) 2.7 % (0.0-12.0); Neutrophils # (auto) 5.7 10 ^3/uL (1.6-8.6); Neutrophils % (auto) 88.6 % (37.0-80.0); Nucleated Red Blood Cells % 0.1 %; Platelet Count (auto) 43 10^3/uL (140-450); Red Blood Cells 4.14 10^6/uL (4.5-5.90); Red Cell Distribution Width 14.2 % (11.8-14.3); White Blood Cell 6.5 10^3/uL (4.4-10.8)
[2024-04-07] MEDS: LACTULOSE 20Gm/30ML SOLN PO ONE (09:30)
[2024-04-07] MEDS: AZITHROMYCIN 500MG/ 250ML 250 ML IV SCH (10:00)
[2024-04-07] MEDS: ONDANSETRON HCL 4 MG/2 ML VIAL IV PRN (10:30)
--- NOTE | 2024-04-07 10:45 | DVHSR ---
APPROVED REPORT EXAM: Two-dimensional and M-mode echocardiogram with Doppler and color Doppler. Blood Pressure: 129/76 mmHg INDICATION Chest Pain RISK FACTORS Height: 5'7", Weight: 165 DIMENSIONS LVDd5.8 (3.8-5.7cm)LA (2D)3.9 (1.9-4.0cm)Aortic Root (2.0-3.7cm) LVDs4.7 (2.5-4.0cm)LA (MM) (1.9-4.0cm)Aortic Cusp Exc (1.5-2.0cm) EF (%) 40.0 (55-70%)Rt. Atrium (1.9-4.0cm)Asc. Aorta cm Mitral Valve MitralMitral Stenosis E/A ratio0.02D MVAcm2 Other Information Quality : Technically LimitedRhythm : Technically limited study due to pt lying on right side, unable to turn. Pt requested exam be stoppe d due to pain. Conclusion The study is technically limited. Patient requested that the exam be stopped. The left ventricle is mildly dilated in size. Ejection fraction is estimated at 40%. There is akinesis of the inferoposterior wall. 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 The neck measures around 2.0 x 3.0 cm in diameter. No evidence of clear thrombus in the aneurysm. The right ventricle is of normal size and systolic function. Valves structure and function are not well assessed. No evidence of pericardial effusion. No prior study for comparison.
[2024-04-07] MEDS: MORPHINE SULFATE INJ 2 MG/ml SYRG IV PRN (15:08)
--- NOTE | 2024-04-07 16:10 | DVHPN2 ---
Progress Note Date Seen: Apr 07, 2024 Medical Necessity Reason Pt with a Central, PICC or Fol: No Subjective Patient reports: No new complaints, Other Review of Systems: Deferred Objective vital signs Vital Sign Date Time Temp Pulse Resp B/P (MAP) Pulse Ox O2 Delivery O2 Flow Rate FiO2 04/07/24 15:08 68 18 118/75 04/07/24 14:00 90 04/07/24 07:30 Nasal Cannula* 2 28 04/07/24 00:56 98.9 98.9 medications Current Medications Medications Dose Ordered Sig/Gertrude Route Start Time Stop Time Status Last Admin Dose Admin Diagnostic Test (Pha) 1 strip ACHS 04/05/24 22:00 04/07/24 11:58 1 STRIP Insulin Human Regular ACHS SC 04/05/24 22:00 Dextrose 50 ml UD PRN IV 04/05/24 21:30 Acetaminophen/ Hydrocodone Bitart 1 tab Q4HP PRN PO 04/05/24 21:30 04/06/24 20:06 1 TAB Ondansetron HCl 4 mg Q4HP PRN IV 04/05/24 21:30 04/07/24 10:30 4 MG Docusate Sodium 100 mg BIDPRN PRN PO 04/05/24 21:30 Acetaminophen 650 mg Q6HP PRN PO 04/05/24 21:30 Atorvastatin Calcium 10 mg HS PO 04/05/24 22:00 04/06/24 22:00 10 MG Aspirin 81 mg DAILY PO 04/06/24 10:00 Nitroglycerin 0.4 mg Q5MINP PRN SL 04/05/24 23:00 Morphine Sulfate 2 mg Q30M PRN IV 04/05/24 23:00 04/07/24 15:08 2 MG Ceftriaxone Sodium 50 ml @ 100 mls/hr DAILY@09 IV 04/06/24 09:00 04/07/24 09:00 100 MLS/HR Azithromycin 250 ml @ 125 mls/hr DAILY IV 04/07/24 10:00 04/07/24 10:00 125 MLS/HR Examination: NEURO:Abnormal laboratory and microbiology Laboratory Tests 04/07/24 06:50 Test 04/07/24 06:50 Range/Units Serum Glucose 102 74-106 mg/dL Problem List/Assessment/Plan Problem List/Assessment/Plan Acute kidney injury hemodynamically mediated Suspect chronic kidney disease however baseline is unknown Proteinuria recs Renal function slightly better since admission Normal kidney ultrasound We will follow closely Plan discussed with: Other GARRET CONNELL MD Apr 07, 2024 16:10
[2024-04-07 16:41] VITALS: BP 153/78; PULSE 103; RESP 20; TEMP 98.1; O2SAT 95
[2024-04-07 16:58] LABS: INR 0.99 (0.9-1.15); Prothrombin Time 10.5 sec (9.3-11.8)
[2024-04-07 17:00] VITALS: BP 153/78; PULSE 102; RESP 18; TEMP 98.1; O2SAT 95
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
--- NOTE | 2024-04-07 19:23 | DVHINCON2 ---
Date Seen: Apr 07, 2024 Referring Physician MD Darian Reason for Consultation Posterior wall aneurysm vs pseudoaneurysm History of Present Illness This is a 64-year-old man who presented to the emergency room via EMS with a chief complaint of flu-like symptoms. The patient is a very poor historian. Information mostly obtained from records and sister at bedside. It appears the patient developed progressive generalized weakness, myalgia, chills, and dysuria around Jass time which prompted his family to call 911. Upon EMS arrival the patient was found with extreme lethargy and nonambulatory. 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 The patient is unable to report any past medical history. He is visiting his family from [place]. Per sister, he had a recent admission to a hospital but unable to provide further information. There was no 12 lead electrocardiogram found on file. Significant medical history includes coronary artery disease status post CABG, mne-[id number] diabetes mellitus, dyslipidemia, and chronic pain syndrome. Past Medical History Past medical history obtained from records. Patient and sister unable to provide information. Past Surgical History CABG Facial reconstruction Family History Unable to obtain family history at this time. Social History Unable to obtain social history at this time. Allergies: Coded Allergies: NO KNOWN ALLERGIES (Unverified , 04/05/24) Home Meds Reported Medications Rosuvastatin Calcium (Rosuvastatin Calcium) 5 Mg Tab, 1 TAB PO DAILY 04/07/24 Hydrocodone-Acetaminophen (Hydrocodone/Acetaminophen 5-325 mg) 1 Tab Tab, 1 TAB PO Q8HPRN PRN for pain 04/07/24 Carisoprodol (Carisoprodol) 250 Mg Tab, 1 TAB PO QID PRN for muscle spasm 04/07/24 Home Meds Home medications reviewed. Current Medications Current Medications Medications (Trade) Dose Ordered Sig/Gertrude Route PRN Reason Start Time Stop Time Status Last Admin Azithromycin 250 ml @ 125 mls/hr DAILY IV 04/07/24 10:00 04/07/24 10:00 Review of Systems Constitutional: Generalized weakness, myalgia, chills Ears, Nose, & Throat: No symptom reported Eyes: No symptom reported Neurological: No symptoms reported Pulmonary/Respiratory: No symptom reported Cardiovascular: No symptom reported Gastrointestinal: No symptom reported Genitourinary: No symptom reported Musculoskeletal: No symptom reported Skin: No symptom reported Psychiatric: No symptom reported Endocrine: No symptom reported Hemotologic/Lymphatic: No symptom reported Vital Signs Vital Signs Date Time Temp Pulse Resp B/P (MAP) Pulse Ox O2 Delivery O2 Flow Rate FiO2 04/07/24 17:00 98.1 102 18 153/78 (103) 95 98.1 04/07/24 16:41 Nasal Cannula* 2 28 Physical Exam General Appearance: Chronically ill. Somewhat disheveled. In no acute distress Head Exam: Normal inspection Neck Exam: Normal inspection. Non-tender. Normal alignment Pulmonary/Respiratory: Chest non-tender. Crackles to bilateral breath sounds Cardiovascular/Chest: Regular rate and rhythm. S1, S2. NSR. No murmurs. No JVD. Peripheral Pulses: 2+ Radial (R). 2+ Radial (L). 2+ Pedal (R). 2+ Pedal (L) Abdominal Exam: Normal bowel sounds. Soft. Nontender. No hepatospenomegaly. No masses Ankle Exam: Negative ankle edema Lower extremities: Negative lower extremity edema Neuro/Mental Status: A&O x2. Very poor historian Thoughts/Psych: Normal thought pattern. Passive Appearance: In no acute distress Skin Exam: Normal inspection. Pale color. Warm. Dry Labs/Diagnostic Data Labs Test 04/07/24 15:48 04/07/24 06:50 04/06/24 09:53 04/06/24 08:36 Range/Units Prothrombin Time 10.5 9.3-11.8 sec Prothrombin Time INR 0.99 0.9-1.15 White Blood Count 6.5 # 4.4-10.8 10^3/uL Red Blood Count 4.14 L 4.5-5.90 10^6/uL Hemoglobin 12.9 L 13.5-17.5 g/dL Hematocrit 37.7 L 41.0-53.0 % Mean Corpuscular Volume 91.1 80.0-100.0 fL Mean Corpuscular Hemoglobin 31.1 28.0-32.0 pg Mean Corpuscular Hemoglobin Concent 34.1 32.0-36.0 g/dL Red Cell Distribution Width 14.2 11.8-14.3 % Platelet Count 43 L 140-450 10^3/uL Mean Platelet Volume 10.5 6.9-10.8 fL Neutrophils (%) (Auto) 88.6 H 37.0-80.0 % Lymphocytes (%) (Auto) 6.0 L 10.0-50.0 % Monocytes (%) (Auto) 2.7 0.0-12.0 % Eosinophils (%) (Auto) 2.4 0.0-7.0 % Basophils (%) (Auto) 0.3 0.0-2.0 % Neutrophils # (Auto) 5.7 1.6-8.6 10 ^3/uL Lymphocytes # (Auto) 0.4 0.4-5.4 10 ^3/uL Monocytes # (Auto) 0.2 0-1.3 10 ^3/uL Eosinophils # (Auto) 0.2 0-0.8 10 ^3/uL Basophils # (Auto) 0 0-0.2 10 ^3/uL Nucleated Red Blood Cells 0.1 % Sodium Level 137 136-145 mmol/L Potassium Level 3.9 3.5-5.1 mmol/L Chloride Level 108 H 98-107 mmol/L Carbon Dioxide Level 19 L 20-31 mmol/L Anion Gap 10 5-15 Blood Urea Nitrogen 63 #H 9-23 mg/dL Creatinine 2.40 H 0.700-1.30 mg/dL Glomerular Filtration Rate Calc 30 >90 mL/min BUN/Creatinine Ratio 26.3 H 10.0-20.0 Serum Glucose 102 74-106 mg/dL Hemoglobin A1c 7.0 H <5.7 % A1C Calcium Level 9.9 8.7-10.4 mg/dL D-Dimer, Quantitative 10.48 H 0.0-0.49 mg/L FEU B-Type Natriuretic Peptide 1260.36 0-100 pg/mL Vitamin D 25-Hydroxy 5.8 L 30.0-100 ng/mL Differential Total Cells Counted 100.0 100 Neutrophils % (Manual) 78 37.0-80.0 Band Neutrophils % (Manual) 6 Lymphocytes % (Manual) 9 L 10.0-50.0 Monocytes % (Manual) 7 0-12 Eosinophils % (Manual) 0 0-7 Basophils % (Manual) 0 0.0-2.0 Metamyelocytes % (manual) 0 Myelocytes % (Manual) 0 Promyelocytes % (Manual) 0 Blast Cells % (Manual) 0 Reactive Lymphocytes 0 Platelet Estimate Decreased Total Bilirubin 0.4 0.2-1.0 mg/dL Aspartate Amino Transferase (AST) 34 13-40 U/L Alanine Aminotransferase (ALT) 14 7-40 U/L Alkaline Phosphatase 64 46-116 U/L Creatine Kinase 284 H 46-171 U/L Total Protein 6.2 5.7-8.2 g/dL Albumin 3.4 3.2-4.8 g/dL Test 04/05/24 20:20 04/05/24 16:33 04/05/24 13:33 Range/Units Urine Color Yellow Yellow Urine Clarity Clear Clear Urine pH 5.5 5.0-9.0 Urine Specific [place] 1.021 1.001-1.035 Urine Protein 1+ H Negative Urine Ketones Trace Negative Urine Blood 2+ H Negative /uL Urine Nitrite Negative Negative Urine Bilirubin Negative Negative Urine Urobilinogen Normal Negative mg/dL Urine Leukocyte Esterase 2+ Negative /uL Urine RBC 2 0 - 3 /hpf Urine WBC 18 0 - 3 /hpf Urine Squamous Epithelial Cells Few <5 /hpf Urine Bacteria Few H None Seen /hpf Urine Hyaline Casts Few 0 - 2 /lpf Urine Glucose Normal Normal mg/dL Influenza Type A Antigen Negative Negative Influenza Type B Antigen Negative Negative SARS-CoV-2 Antigen (Rapid) Negative NEGATIVE Large Platelets Few Troponin I High Sensitivity 22 </=54 ng/L Assessment 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 Rodriguez) The patient with complaints of generalized weakness and flu-like symptoms underwent a transthoracic echocardiogram revealing an LVEF of 40% with akinesis of the inferoposterior wall as well as found with the base to mid part of the inferior posterior wall aneurysms pseudoaneurysm with neck measuring 2.0 x 3.0 cm in diameter and no evidence of clear thrombus. Unable to obtain information from patient and sister in regards of cardiac history including previous findings of aneurysms. We strongly recommend to obtain records from previous facilities and primary proposal manager writer to further delineate plan of care. Primary care team has been notified. In the meantime, discontinue single-antiplatelet therapy given severe thrombocytopenia and continue lipid-lowering agent. Initiate preload and afterload reduction including strict I&Os. Continue GDMT for CHF as renal function permits. Obtain lower extremity DVT and VQ Scan. Con nazia nephrology recommendations. Thank you for allowing us to participate in this patient's care. Please call if you have any questions or concerns. Critical care time: 40 min. This medical document was created using an electronic medical record system with voice recognition software and computerized dictation system. Although this document has been carefully revi ewed, there might still be some phonetic and typographical errors. Occasional wrong-word or ``sound-alike substitutions may have occurred due to the inherent limitations of voice recognition software. These areas are purely typographical due to imperfections of the software programs and do not reflect any compromise in the patient's medical care. Please read the chart carefully and recognize, using context, where these substitutions have occurred. Plan discussed with: Patient, Other (Sister, primary team) NYHA Physical activity limitations: Class3(Marked) ordinary (activity causes symtoms) Date of Service: Apr 07, 2024 Billing Provider: DARON RODRIGUEZ MD Cardiology Common Codes: [id number] CARE 30-74 MIN JENIFER ENGLE CONVEYOR INSTALLER Apr 07, 2024 19:23
--- NOTE | 2024-04-07 19:45 | DVH ---
Procedure: NM NM HIDA SCAN Exam Date: 04/07/2024 02:30 PM Clinical History: rule out acute cholecystitis Comparison Study: CT scan dated 04/06/2024 Technique: Following the intravenous administration of 4.2 mCi of technetium 99m labeled Choletec mul tiple planar abdominal planar images were obtained in anterior projection in 1 minute intervals for 3 0 minutes . Right lateral an AP images 4 hour delay images were also obtained. Findings: The liver appears grossly normal in size. There is no abnormal persistence of the cardiac or blood po ol activity. Radiotracer was seen within the 1st 15 minutes of the study. Gallbladder was not seen in the 1st 30 minutes of imaging. 4 hour delay shows activity in gallbladder. Impression: 1. No evidence of cystic duct or CBD obstruction.
[2024-04-07 20:00] VITALS: PULSE 103
--- NOTE | 2024-04-07 20:04 | DVH ---
Bilateral lower extremity venous duplex Clinical History: Elevated d-dimer r/o DVT Comparison: None Technique: Duplex Doppler evaluation of the deep venous systems of both lower extremities from the common femora l veins to the popliteal veins including color Doppler and spectral/pulsed waveform analysis was perf ormed. Findings: RIGHT SIDE: The common femoral vein demonstrates appropriate compressibility and waveform variability . There is compressibility/patency of the great saphenous vein at the proximal thigh . The femoral vein demonstrates appropriate compressibility and waveform variability . The deep femoral vein demonstrates appropriate compressibility and waveform variability . The popliteal vein demonstrates appropriate compressibility and waveform variability . There is normal compressibility at the tibioperoneal trunk. LEFT SIDE: The common femoral vein demonstrates appropriate compressibility and waveform variability . There is compressibility/patency of the great saphenous vein at the proximal thigh . The femoral vein demonstrates appropriate compressibility and waveform variability . The deep femoral vein demonstrates appropriate compressibility and waveform variability . The popliteal vein demonstrates appropriate compressibility and waveform variability . There is normal compressibility at the tibioperoneal trunk. Impression: 1. No right or left femoropopliteal venous thrombosis. HS:Y
[2024-04-07 21:00] VITALS: BP 156/82; PULSE 103; RESP 20; TEMP 97.6; O2SAT 96
[2024-04-07] MEDS: ATORVASTATIN 20 MG TAB PO SCH (21:02)
[2024-04-07] MEDS: CARVEDILOL 3.125 MG TAB PO SCH (21:02)
[2024-04-07] MEDS: FUROSEMIDE 20 MG/2 ML VIAL IV ONE (21:03)
[2024-04-07] MEDS ORDERED: [UNRECOGNIZED DRUG - CODE] PO (22:11)
[2024-04-07] MEDS ORDERED: HYDR1TAB97 PO (22:11)
[2024-04-07] MEDS ORDERED: ROSU5TAB24 PO (22:11)
[2024-04-07 23:31] LABS: Opiate Scree,Urine Neg (NEGATIVE)
[2024-04-07 23:34] LABS: Protein, Urine 105.6 mg/dL (1-14)
[2024-04-07 23:36] LABS: Creatinine, Urine 50.58 mg/dL (30.0-125.0); Urine Protein/Creatinine Ratio 2.09
[2024-04-07 23:43] LABS: Amphetamine Screen, Urine Neg (NEGATIVE); Barbiturate Scree,Urine Neg (NEGATIVE); Benzodiazephine Screen, Urine Neg (NEGATIVE); Cannabinoid Screen, Urine Neg (NEGATIVE); Cocaine Screen, Urine Neg (NEGATIVE); Phencyclidine Screen, Urine Neg (NEGATIVE)
[2024-04-08] VITALS (8 sets, daily range): BP systolic 101–133; BP diastolic 56–78; PULSE 75–90; RESP 17–20; TEMP 96.1–98.7; O2SAT 95–100
[2024-04-08] MEDS: FUROSEMIDE 20 MG/2 ML VIAL IV SCH (05:36)
[2024-04-08 10:04] LABS: Hemoglobin 13.3 g/dL (13.5-17.5)
[2024-04-08 10:06] LABS: Hematocrit 38.8 % (41.0-53.0); Mean Corpuscular Hgb Conc. 34.2 g/dL (32.0-36.0); Mean Corpuscular Volume 90.7 fL (80.0-100.0); Platelet Count (auto) 40 10^3/uL (140-450); Red Blood Cells 4.28 10^6/uL (4.5-5.90); Red Cell Distribution Width 14.6 % (11.8-14.3); White Blood Cell 4.9 10^3/uL (4.4-10.8)
[2024-04-08 10:12] LABS: Band Neutrophils % (manual) 0; Basophils % (manual) 0 (0.0-2.0); Blast Cells 0; Eosinophils % (manual) 0 (0-7); Metamyelocytes % 0; Myelocytes % 0; Promyelocytes % 0; Reactive Lymphocytes 0
[2024-04-08 10:16] LABS: Potassium 4.1 mmol/L (3.5-5.1); Sodium 139 mmol/L (136-145)
[2024-04-08 10:17] LABS: Anion Gap 10 (5-15); Calcium 9.6 mg/dL (8.7-10.4); Carbon Dioxide 21 mmol/L (20-31)
[2024-04-08 10:22] LABS: BUN/Creatinine Ratio 36.2 (10.0-20.0)
[2024-04-08 10:26] LABS: Blood Urea Nitrogen 77 mg/dL (9-23); Chloride 108 mmol/L (98-107); Glucose 135 mg/dL (74-106)
--- NOTE | 2024-04-08 10:30 | DVHPN2 ---
Consult Progress Note Date Seen: Apr 08, 2024 Subjective Review of Systems: CVS:Normal, RESPIRATORY:Normal, GI:Abnormal, NEURO:Normal Other Systems: Appears more alert today. C/o abd pain Objective vital signs Vital Sign Date Time Temp Pulse Resp B/P (MAP) Pulse Ox O2 Delivery O2 Flow Rate FiO2 04/08/24 09:58 88 118/68 04/08/24 05:00 97.6 18 96 97.6 04/07/24 20:00 Nasal Cannula* 3 32 Total Intake and Output 04/07/24 04/07/24 04/08/24 15:00 23:00 07:00 Intake Total 780 ml 340 ml 240 ml Output Total 0 ml 0 ml 550 ml Balance 780 ml 340 ml -310 ml medications Current Medications Medications Dose Ordered Sig/Gertrude Route Start Time Stop Time Status Last Admin Dose Admin Diagnostic Test (Pha) 1 strip ACHS 04/05/24 22:00 04/08/24 06:06 1 STRIP Insulin Human Regular ACHS SC 04/05/24 22:00 Dextrose 50 ml UD PRN IV 04/05/24 21:30 Acetaminophen/ Hydrocodone Bitart 1 tab Q4HP PRN PO 04/05/24 21:30 04/08/24 05:56 1 TAB Ondansetron HCl 4 mg Q4HP PRN IV 04/05/24 21:30 04/07/24 10:30 4 MG Docusate Sodium 100 mg BIDPRN PRN PO 04/05/24 21:30 Acetaminophen 650 mg Q6HP PRN PO 04/05/24 21:30 Nitroglycerin 0.4 mg Q5MINP PRN SL 04/05/24 23:00 Morphine Sulfate 2 mg Q30M PRN IV 04/05/24 23:00 04/07/24 15:08 2 MG Ceftriaxone Sodium 50 ml @ 100 mls/hr DAILY@09 IV 04/06/24 09:00 04/08/24 09:00 100 MLS/HR Azithromycin 250 ml @ 125 mls/hr DAILY IV 04/07/24 10:00 04/08/24 09:58 125 MLS/HR Atorvastatin Calcium 40 mg HS PO 04/07/24 22:00 04/07/24 21:02 40 MG Carvedilol 6.25 mg Q12HR PO 04/07/24 22:00 04/08/24 09:00 6.25 MG Furosemide 20 mg BIDD IV 04/08/24 06:00 04/08/24 05:36 20 MG Ergocalciferol 50,000 unit Q7D PO 04/08/24 09:15 Pantoprazole Sodium 40 mg DAILY IV 04/09/24 10:00 UNV Examination: GENERAL:Abnormal (Chronically ill), LUNGS:Abnormal (Diminished), CVS:Normal (NSR), NEURO:Abnormal (Right facial droop/right-sided hemiparesis) laboratory and microbiology Laboratory Tests 04/08/24 09:30 Test 04/08/24 09:30 Range/Units Serum Glucose Pending Problem List/Assessment/Plan Problem List/Assessment/Plan 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 Martin) The patient with complaints of generalized weakness and flu-like symptoms underwent a transthoracic echocardiogram revealing an LVEF of 40% with akinesis of the inferoposterior wall as well as found with the base to mid part of the inferior posterior wall aneurysms pseudoaneurysm with neck measuring 2.0 x 3.0 cm in diameter and no evidence of clear thrombus. Per patient, he had a recent admission to an unknown hospital with a length stay of 6-7 days and diagnosed with an PA. Denies any invasive procedures at that time. Unable to obtain information in regards of previous findings of aneurysms. We strongly recommend to obtain records from previous facilities and primary conventions assistant to further delineate plan of care. Off antiplatelet therapy given severe thrombocytopenia. Continue lipid-lowering agent as well as preload and afterload reduction including strict I&Os. Continue GDMT for CHF as renal function permits. Obtain STAT head CT and VQ Scan. Continue nephrology recommendations. Thank you for allowing us to participate in this patient's care. Please call if you have any questions or concerns. This medical document was created using an electronic medical record system with voice recognition software and computerized dictation system. Although this document has been carefully reviewed, there might still be some phonetic and typographical errors. Occasional wrong-word or ``sound-alike substitutions may have occurred due to the inherent limitations of voice recognition software. These areas are purely typographical due to imperfections of the software programs and do not reflect any compromise in the patient's medical care. Please read the chart carefully and recognize, using context, where these substitutions have occurred. Plan discussed with: Patient, Other Date of Service: Apr 08, 2024 Billing Provider: MAME MARTIN Sr., MD Cardiology Common Codes: [id number] HOSP CARE(High ENGLEXAVIERY [facility] Apr 08, 2024 10:30
[2024-04-08 10:33] LABS: Magnesium 2.3 mg/dL (1.6-2.6)
--- NOTE | 2024-04-08 11:01 | DVH ---
EXAM: CT HEAD WITHOUT CONTRAST INDICATION: Right facial droop TECHNIQUE: CT of the head without intravenous contrast. Radiation dose : Head: CT Dose: CTDI volume is 57 mGy. Dose-length product is 1029 mGy*cm The dose indicators for CT are the volume computed tomography (CT) dose index (CTDIvol) and the dose length product (DLP), and are measured in units of mGy and mGy-cm, respectively. These indicators are not patient dose, but values generated from the CT scanner acquisition factors. The report includes radiation exposure data for exposures received during this examination. COMPARISON: None FINDINGS: There is no evidence of acute intracranial hemorrhage, extra-axial collection, mass effect, midline s hift, herniation or hydrocephalus. Mild cerebral atrophy. Focal hypodensity in the region of the head of the left caudate and in the left basal ganglia extendi ng into the left temporal lobe. Mild calcifications in the left santos radiata. The visualized paranasal sinuses and mastoid air cells are clear. Mildly displaced fractures of the anterior wall of the right maxillary sinus. Chronic appearing fract ure deformity of the right zygomatic arch. IMPRESSION: 1. No acute intracranial abnormality. 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 C alcification in the left santos radiata is nonspecific. Consider further evaluation with MRI of the b rain with contrast. Mild cerebral atrophy. 2. Fracture deformity of the anterior wall of the right maxillary sinus and right zygomatic arch. Con thoroughbred horse farm manager further evaluation with CT of the facial bones. Radiation optimization: All CT scans at this facility use at least one of these dose optimization kimberly hniques: Automated exposure control mA and/or kV adjustment per patient size (includes targeted exams where dose is matched to clinical indication) or iterative reconstruction. HS:Y
[2024-04-08 12:01] LABS: Lymphocytes % (manual) 11 (10.0-50.0); Monocytes % (manual) 4 (0-12); Platelet Estimate Decreased
[2024-04-08] MEDS: SUCRALFATE 1 GM TAB PO ONE (12:02)
[2024-04-08] MEDS: PANTOPRAZOLE 40 MG/10 ML VIAL INJ IV ONE (12:02)
[2024-04-08] MEDS: ERGOCALCIFEROL 50,000 UNIT(1.25MG) CAP PO SCH (12:02)
--- NOTE | 2024-04-08 17:45 | DVHPN2 ---
Progress Note Date Seen: Apr 08, 2024 Medical Necessity Reason Pt with a Central, PICC or Fol: No Subjective Patient reports: No new complaints Review of Systems: Deferred Objective vital signs Vital Sign Date Time Temp Pulse Resp B/P (MAP) Pulse Ox O2 Delivery O2 Flow Rate FiO2 04/08/24 17:34 121/65 04/08/24 09:58 88 04/08/24 08:00 Nasal Cannula* 3 32 04/08/24 05:00 97.6 18 96 97.6 Total Intake and Output 04/07/24 04/07/24 04/08/24 15:00 23:00 07:00 Intake Total 780 ml 340 ml 240 ml Output Total 0 ml 0 ml 550 ml Balance 780 ml 340 ml -310 ml medications Current Medications Medications Dose Ordered Sig/Gertrude Route Start Time Stop Time Status Last Admin Dose Admin Diagnostic Test (Pha) 1 strip ACHS 04/05/24 22:00 04/08/24 17:33 1 STRIP Insulin Human Regular ACHS SC 04/05/24 22:00 04/08/24 12:13 2 UNITS Dextrose 50 ml UD PRN IV 04/05/24 21:30 Acetaminophen/ Hydrocodone Bitart 1 tab Q4HP PRN PO 04/05/24 21:30 04/08/24 12:02 1 TAB Ondansetron HCl 4 mg Q4HP PRN IV 04/05/24 21:30 04/07/24 10:30 4 MG Docusate Sodium 100 mg BIDPRN PRN PO 04/05/24 21:30 Acetaminophen 650 mg Q6HP PRN PO 04/05/24 21:30 Nitroglycerin 0.4 mg Q5MINP PRN SL 04/05/24 23:00 Morphine Sulfate 2 mg Q30M PRN IV 04/05/24 23:00 04/07/24 15:08 2 MG Ceftriaxone Sodium 50 ml @ 100 mls/hr DAILY@09 IV 04/06/24 09:00 04/08/24 09:00 100 MLS/HR Azithromycin 250 ml @ 125 mls/hr DAILY IV 04/07/24 10:00 04/08/24 09:58 125 MLS/HR Atorvastatin Calcium 40 mg HS PO 04/07/24 22:00 04/07/24 21:02 40 MG Carvedilol 6.25 mg Q12HR PO 04/07/24 22:00 04/08/24 09:00 6.25 MG Furosemide 20 mg BIDD IV 04/08/24 06:00 04/08/24 05:36 20 MG Ergocalciferol 50,000 unit Q7D PO 04/08/24 09:15 04/08/24 12:02 50,000 UNIT Pantoprazole Sodium 40 mg DAILY IV 04/09/24 10:00 laboratory and microbiology Laboratory Tests 04/08/24 09:30 Test 04/08/24 09:30 Range/Units Serum Glucose 135 H 74-106 mg/dL Problem List/Assessment/Plan Problem List/Assessment/Plan Acute kidney injury hemodynamically mediated Suspect chronic kidney disease however baseline is unknown Proteinuria 

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
[2024-04-09 01:00] VITALS: BP 129/73; PULSE 74; RESP 20; TEMP 97.4; O2SAT 97
[2024-04-09 04:33] VITALS: BP 108/51; PULSE 77; RESP 18; TEMP 97.9; O2SAT 97
[2024-04-09 07:30] LABS: Basophils # (auto) 0 10 ^3/uL (0-0.2); Basophils % (auto) 0.2 % (0.0-2.0); Eosinophils # (auto) 0.3 10 ^3/uL (0-0.8); Eosinophils % (auto) 4.4 % (0.0-7.0); Hematocrit 42.8 % (41.0-53.0); Hemoglobin 14.5 g/dL (13.5-17.5); Lymphocytes # (auto) 0.6 10 ^3/uL (0.4-5.4); Lymphocytes % (auto) 9.3 % (10.0-50.0); Mean Corpuscular Hemoglobin 31.4 pg (28.0-32.0); Mean Corpuscular Hgb Conc. 33.8 g/dL (32.0-36.0); Mean Corpuscular Volume 92.9 fL (80.0-100.0); Monocytes # (auto) 0.4 10 ^3/uL (0-1.3); Monocytes % (auto) 7.3 % (0.0-12.0); Neutrophils # (auto) 4.8 10 ^3/uL (1.6-8.6); Neutrophils % (auto) 78.8 % (37.0-80.0); Nucleated Red Blood Cells % 0.1 %; Platelet Count (auto) 46 10^3/uL (140-450); Red Blood Cells 4.61 10^6/uL (4.5-5.90); Red Cell Distribution Width 14.6 % (11.8-14.3); White Blood Cell 6.1 10^3/uL (4.4-10.8)
[2024-04-09 07:49] LABS: Potassium 4.2 mmol/L (3.5-5.1); Sodium 138 mmol/L (136-145)
[2024-04-09 07:50] LABS: Anion Gap 11 (5-15); Carbon Dioxide 19 mmol/L (20-31); Chloride 108 mmol/L (98-107)
[2024-04-09 07:55] LABS: BUN/Creatinine Ratio 41.7 (10.0-20.0)
[2024-04-09 08:00] VITALS: PULSE 81; PULSE 84; RESP 18; O2SAT 97
[2024-04-09 08:22] LABS: Glucose 122 mg/dL (74-106)
[2024-04-09 08:24] LABS: Blood Urea Nitrogen 85 mg/dL (9-23)
[2024-04-09] MEDS: PANTOPRAZOLE 40 MG/10 ML VIAL INJ IV SCH (08:40)
[2024-04-09 09:00] VITALS: BP 128/63; PULSE 81; RESP 18; TEMP 98.1; O2SAT 94
--- NOTE | 2024-04-09 11:11 | DVHPN2 ---
Consult Progress Note Date Seen: Apr 09, 2024 Subjective Other Systems: Reports he wants to AMA. Denies any cardiac symptoms Objective vital signs Vital Sign Date Time Temp Pulse Resp B/P (MAP) Pulse Ox O2 Delivery O2 Flow Rate FiO2 04/09/24 08:41 81 128/68 04/09/24 04:33 97.9 18 97 97.9 04/08/24 20:00 Nasal Cannula* 3 32 Total Intake and Output 04/08/24 04/08/24 04/09/24 15:00 23:00 07:00 Intake Total 300 ml 736 ml 400 ml Output Total 800 ml 700 ml Balance 300 ml -64 ml -300 ml medications Current Medications Medications Dose Ordered Sig/Gertrude Route Start Time Stop Time Status Last Admin Dose Admin Diagnostic Test (Pha) 1 strip ACHS 04/05/24 22:00 04/09/24 06:03 1 STRIP Insulin Human Regular ACHS SC 04/05/24 22:00 04/08/24 12:13 2 UNITS Dextrose 50 ml UD PRN IV 04/05/24 21:30 Acetaminophen/ Hydrocodone Bitart 1 tab Q4HP PRN PO 04/05/24 21:30 04/08/24 19:51 1 TAB Ondansetron HCl 4 mg Q4HP PRN IV 04/05/24 21:30 04/07/24 10:30 4 MG Docusate Sodium 100 mg BIDPRN PRN PO 04/05/24 21:30 Acetaminophen 650 mg Q6HP PRN PO 04/05/24 21:30 Nitroglycerin 0.4 mg Q5MINP PRN SL 04/05/24 23:00 Morphine Sulfate 2 mg Q30M PRN IV 04/05/24 23:00 04/07/24 15:08 2 MG Ceftriaxone Sodium 50 ml @ 100 mls/hr DAILY@09 IV 04/06/24 09:00 04/09/24 08:40 100 MLS/HR Azithromycin 250 ml @ 125 mls/hr DAILY IV 04/07/24 10:00 04/08/24 09:58 125 MLS/HR Atorvastatin Calcium 40 mg HS PO 04/07/24 22:00 04/08/24 21:52 40 MG Carvedilol 6.25 mg Q12HR PO 04/07/24 22:00 04/09/24 08:41 6.25 MG Furosemide 20 mg BIDD IV 04/08/24 06:00 04/09/24 06:06 20 MG Ergocalciferol 50,000 unit Q7D PO 04/08/24 09:15 04/08/24 12:02 50,000 UNIT Pantoprazole Sodium 40 mg DAILY IV 04/09/24 10:00 04/09/24 08:40 40 MG Examination: GENERAL:Abnormal (Chronically ill), LUNGS:Abnormal (Bibasilar crackles), CVS:Normal, NEURO:Abnormal (Right facial droop/hemiparesis. 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 Rodriguez) Patient seen and evaluated with Dr. Rodriguez at bedside. The patient with complaints of generalized weakness and flu-like symptoms underwent a transthoracic echocardiogram revealing an LVEF of 40% with akinesis of the inferoposterior wall as well as found with the base to mid part of the inferior posterior wall aneurysms pseudoaneurysm with neck measuring 2.0 x 3.0 cm in diameter and no evidence of clear thrombus. Per patient, he had a recent admission to an unknown hospital with a length stay of 6-7 days and diagnosed with an CO. Denies any invasive procedures at that time. We were unable to obtain records from previous facilities. He was scheduled for a transesophageal echocardiogram and transfer to higher level of care. Unfortunately, the patient is requesting to leave against medical advise. Please call if in need to re- consult. We will sign off at this time. Thank you for allowing us to participate in this patient's care. This medical document was created using an electronic medical record system with voice recognition software and computerized dictation system. Although this document has been carefully reviewed, there might still be some phonetic and typographical errors. Occasional wrong-word or ``sound-alike substitutions may have occurred due to the inherent limitations of voice recognition software. These areas are purely typographical due to imperfections of the software programs and do not reflect any compromise in the patient's medical care. Please read the chart carefully and recognize, using context, where these substitutions have occurred. Plan discussed with: Patient, Other Date of Service: Apr 09, 2024 Billing Provider: DARON RODRIGUEZ MD Cardiology Common Codes: [id number] INP/OBS CARE(Mod) JENIFER ENGLE [facility] Apr 09, 2024 11:11
[2024-04-09 13:00] VITALS: BP 156/80; PULSE 77; RESP 18; TEMP 98.1; O2SAT 95
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
[2024-04-09 17:00] VITALS: BP 149/82; PULSE 54; RESP 18; TEMP 98.1; O2SAT 94
--- NOTE | 2024-04-09 17:17 | DVHPN2 ---
Progress Note Date Seen: Apr 09, 2024 Medical Necessity Reason Pt with a Central, PICC or Fol: No Subjective Patient reports: No new complaints (wants to leave) Review of Systems: Deferred Objective vital signs Vital Sign Date Time Temp Pulse Resp B/P (MAP) Pulse Ox O2 Delivery O2 Flow Rate FiO2 04/09/24 17:00 98.1 54 18 149/82 (104) 94 98.1 04/09/24 08:00 Room Air* 0 21 Total Intake and Output 04/08/24 04/08/24 04/09/24 15:00 23:00 07:00 Intake Total 300 ml 736 ml 400 ml Output Total 800 ml 700 ml Balance 300 ml -64 ml -300 ml medications Current Medications Medications Dose Ordered Sig/Gertrude Route Start Time Stop Time Status Last Admin Dose Admin Diagnostic Test (Pha) 1 strip ACHS 04/05/24 22:00 04/09/24 06:03 1 STRIP Insulin Human Regular ACHS SC 04/05/24 22:00 04/08/24 12:13 2 UNITS Dextrose 50 ml UD PRN IV 04/05/24 21:30 Acetaminophen/ Hydrocodone Bitart 1 tab Q4HP PRN PO 04/05/24 21:30 04/09/24 14:39 1 TAB Ondansetron HCl 4 mg Q4HP PRN IV 04/05/24 21:30 04/07/24 10:30 4 MG Docusate Sodium 100 mg BIDPRN PRN PO 04/05/24 21:30 Acetaminophen 650 mg Q6HP PRN PO 04/05/24 21:30 Nitroglycerin 0.4 mg Q5MINP PRN SL 04/05/24 23:00 Morphine Sulfate 2 mg Q30M PRN IV 04/05/24 23:00 04/07/24 15:08 2 MG Ceftriaxone Sodium 50 ml @ 100 mls/hr DAILY@09 IV 04/06/24 09:00 04/09/24 08:40 100 MLS/HR Azithromycin 250 ml @ 125 mls/hr DAILY IV 04/07/24 10:00 04/08/24 09:58 125 MLS/HR Atorvastatin Calcium 40 mg HS PO 04/07/24 22:00 04/08/24 21:52 40 MG Carvedilol 6.25 mg Q12HR PO 04/07/24 22:00 04/09/24 08:41 6.25 MG Furosemide 20 mg BIDD IV 04/08/24 06:00 04/09/24 06:06 20 MG Ergocalciferol 50,000 unit Q7D PO 04/08/24 09:15 04/08/24 12:02 50,000 UNIT Pantoprazole Sodium 40 mg DAILY IV 04/09/24 10:00 04/09/24 08:40 40 MG laboratory and microbiology Laboratory Tests 04/09/24 06:52 Test 04/09/24 06:52 Range/Units Serum Glucose 122 H 74-106 mg/dL Problem List/Assessment/Plan Problem List/Assessment/Plan Acute kidney injury hemodynamically mediated Suspect chronic kidney disease however baseline is unknown Proteinuria Inferior posterior wall wide neck aneurysm vs pseudoaneurysm Acute on chronic decompensated HFrEF Coronary artery disease status post quadruple vessel CABG x 1.5 years Insulin-dependent diabetes mellitus Hypertension recs Renal function stable Normal kidney ultrasound We will follow closely Plan discussed with: Patient GARRET CONNELL MD Apr 09, 2024 17:17
[2024-04-10 10:40] LABS: Hepatitis B Surface Antibody Negative (Negative)
[2024-04-10 12:01] LABS: Hepatitis C Antibody Negative (Negative)
== END 2024-04-09 18:08 | disposition left against medical advice (07) | DRG 444 ==
LOC: EDBD 13:12 → ER 13:12 → TELE 22:55 → TELE-WESTW 04-07 16:35 → WEST WING 04-08 11:48 → TELE-WESTW 04-08 13:12
PROVIDERS: ADMIT Internal Medicine Geriatric Medicine; ATTEND Emergency Medicine
DX: K81.0 Acute cholecystitis (principal); G93.41 Metabolic encephalopathy; J15.69 Pneumonia due to other Gram-negative bacteria; I50.43 Acute on chronic combined systolic (congestive) and diastolic (congestive) heart failure; N17.0 Acute kidney failure with tubular necrosis; J18.9 Pneumonia, unspecified organism; J15.9 Unspecified bacterial pneumonia; I13.0 Hypertensive heart and chronic kidney disease with heart failure and stage 1 through stage 4 chronic kidney disease, or unspecified chronic kidney disease; F11.13 Opioid abuse with withdrawal; D69.6 Thrombocytopenia, unspecified; Z20.822 Contact with and (suspected) exposure to COVID-19; E78.5 Hyperlipidemia, unspecified; E11.22 Type 2 diabetes mellitus with diabetic chronic kidney disease; N18.9 Chronic kidney disease, unspecified; I25.5 Ischemic cardiomyopathy; E86.0 Dehydration; I25.10 Atherosclerotic heart disease of native coronary artery without angina pectoris; R80.9 Proteinuria, unspecified; F17.200 Nicotine dependence, unspecified, uncomplicated; G89.4 Chronic pain syndrome; Z95.1 Presence of aortocoronary bypass graft; Z79.84 Long term (current) use of oral hypoglycemic drugs; Z79.4 Long term (current) use of insulin
CPT/HCPCS: 36415; 70450; 71045; 74176; 76775; 78226; 80048; 80053; 80061; 80307; 81001; 82043; 82306; 82550; 82570; 82962; 83036; 83735; 83880; 83935; 84156; 84300; 84443; 84484; 85007; 85025; 85027; 85379; 85610; 86706; 86803; 86850; 86900; 86901; 87426; 87804; 92610; 93306; 93970; 97163; G0378; J1815; J2405; J2470